=== PATIENT | male | born 1990 | race Caucasian/White ===

== ENCOUNTER 2017-11-11 18:03 | Emergency (ER) | payer MEDICAID, SELFPAY ==
[2017-11-11 18:04] VITALS: BP 149/97; PULSE 77; RESP 14; TEMP 36.8; O2SAT 99; BMI 34.0
--- NOTE | 2017-11-11 18:10 | RAD_ITS ---
STUDY: X-RAY - RIGHT FOOT CLINICAL: Male, 27 years old. Right foot pain TECHNIQUE: 3 view(s) of the foot. COMPARISON: None. FINDINGS: There is a minimally displaced fracture at the distal aspect of the proximal phalanx of the right first toe with intra-articular extension. The remainder of the visualized osseous structures are intact. There are no significant degenerative changes. There are no radiodense foreign bodies. RAD/Foot min 3 Views IMPRESSION: Minimally displaced fracture at the distal aspect of the proximal phalanx of the right first toe with intra-articular extension. Electronically Signed: Murphy Tamez, at 18:21 EDT Tel , Service support ,
--- NOTE | 2017-11-11 19:22 | ED.VISSUMM ---
- ER Visit Summary Date of Service: 11/11/17 Chief Complaint: Right first toe pain History of Present Illness: The patient is a 27 M who 3 days ago slipped on a step and fell with his right foot and toes pointed straight down. He complains of pain and swelling in his right first toe. No paresthesias weakness or loss of function. Physical Examination: Afebrile vitals unremarkable There is soft tissue swelling and ecchymosis of the right first toe he has brisk capillary refill normal sensation to light touch active full range of motion although painful there is no tenderness of the foot ankle or proximal fibula Test Results: Foot x-ray does show a minimally displaced fracture of the right first toe phalanx of the distal portion extending into the articular surface. Emergency Department Course and Treatment: Patient will be given a prescription for naproxen. He was advised on supportive care including rest ice and elevation. Toes were shweta taped and he was given a postoperative shoe. He was referred to orthopedics for follow-up. He understands return for new or worsening symptoms all questions answered bedside patient discharged. Treatment Plan: [] Disposition: Discharge Impression: Right first toe fracture This note was generated with [employer] dictation software. It may contain incorrect words, spelling, and punctuation that were not noted in review of the chart prior to signing ED Disposition - Plan for ED Patient: Chief Complaint: Lower Extremity Injury Referrals: Care Physician,No Primary [Primary Care Provider] -
--- NOTE | 2017-11-11 19:24 | ED.DEP ---
ED Disposition - Plan for ED Patient: Chief Complaint: Lower Extremity Injury Instructions: ED Fx Toe Closed Prescriptions: Naproxen [Naprosyn] 500 mg PO BID #20 tab Referrals: Care Physician,No Primary [Primary Care Provider] - Murphy Biggs MD [STAFF PHYSICIAN] -
== END 2017-11-11 19:35 | disposition home or self-care (01) ==
PROVIDERS: Emergency Provider Emergency Medicine
DX: S92.911A Unspecified fracture of right toe(s), initial encounter for closed fracture (principal); W01.0XXA Fall on same level from slipping, tripping and stumbling without subsequent striking against object, initial encounter; Y93.9 Activity, unspecified; Y92.89 Other specified places as the place of occurrence of the external cause; Y99.9 Unspecified external cause status; Z87.891 Personal history of nicotine dependence
CPT/HCPCS: 73630; 99283

== ENCOUNTER → 2020-04-11 17:20 | Outpatient (CLI) | payer MEDICAID, SELFPAY | DX: Z20.828 Contact with and (suspected) exposure to other viral communicable diseases (principal) | CPT/HCPCS: 87635; C9803; U0003 ==